=== PATIENT | female | born 1980 | race Caucasian/White ===

== ENCOUNTER 2019-12-16 18:15 | Emergency (ER) | payer BC, SELFPAY ==
[2019-12-16 18:32] VITALS: BP 150/87; PULSE 117; RESP 18; TEMP 38.6; O2SAT 100
--- NOTE | 2019-12-16 18:54 | ED.GENADULT ---
HPI - General Adult General Chief complaint: Upper Respiratory Infection Stated complaint: Cough/Fever/Body Aches Time Seen by Provider: 12/16/19 18:54 Source: patient Mode of arrival: ambulatory Limitations: no limitations History of Present Illness HPI narrative: 39-year-old female patient presents to the [facility] with complaints of cold symptoms weeks for the past 2 days. Patient states that her fever started today. Patient states she has had severe aches, chills fevers. Patient states she did get a flu shot in July 2019. Patient denies any chest pain, shortness breath, abdominal pain, nausea, vomiting or diarrhea. Patient states she has tried taking some Mucinex for her symptoms. Related Data Home Medications Medication Instructions Recorded Confirmed cetirizine [Zyrtec] 10 mg PO DAILY 11/11/19 12/16/19 escitalopram oxalate [Lexapro] 20 mg PO DAILY 11/11/19 12/16/19 omeprazole 20 mg PO DAILY 11/11/19 12/16/19 Allergies Allergy/AdvReac Type Severity Reaction Status Date / Time No Known Allergies Allergy Verified 12/16/19 18:38 Review of Systems Review of Systems: Narrative: CONSTITUTIONAL: Positive fever, body aches, chills, and sweats. EYES: Denies visual changes, redness, or discharge. ENT: Denies rhinorrhea, congestion, sore throat, or otalgia. CARDIOVASCULAR: Denies chest pain, palpitations, or edema. RESPIRATORY: Positive cough, denies dyspnea. GASTROINTESTINAL: Denies abdominal pain, nausea, vomiting, or diarrhea. GENITOURINARY: Denies dysuria or hematuria. SKIN: Denies rash or itching. MUSCULOSKELETAL: Denies back pain, joint pain, or myalgia. NEUROLOGIC: Positive headache, denies numbness, or weakness. PSYCHIATRIC: Denies anxiety or depression. [facility] Past Medical History Medical History Anxiety and depression Benign breast lumps GERD (gastroesophageal reflux disease) Seasonal allergies Tubal infertility in female Surgical History Surgical History H/O sinus surgery History of cholecystectomy History of elbow surgery History of endometrial ablation History of lumpectomy of right breast Social History Social History (Reviewed 12/16/19 @ 18:55 by STEVEN Valle Smoking status: Former smoker Tobacco type: cigarettes Gender identity (if verbalized by the patient): Female Comments At the time of my signature I agree with nursing past medical history, surgical, social, and family history. There is no relevant family history pertinent to the presenting complaint. Exam Narrative: Exam Narrative: GENERAL: ill-appearing, well-nourished, and in no acute distress. Patient is curled up with heavy coat on complaining of being cold HEAD: Normocephalic, atraumatic. EYES: PERRLA and EOMI. ENT: Nares with erythema and edema noted bilaterally, patent, no rhinorrhea or epistaxis. Mucous membranes moist. Posterior pharynx with no erythema, tonsillar margin, exudates or lesions present. Bilateral TMs are clear with no erythema or foreign bodies in the canal. NECK: Supple. No lymphadenopathy CHEST: Clear to auscultation. No respiratory distress. HEART: Regular rate and rhythm. No murmur heard. Normal peripheral pulses. ABDOMEN: Soft, nontender, nondistended, normal active bowel sounds. EXTREMITIES: Normal range of motion. No edema. SKIN: Warm, dry, no rash. NEURO: No focal deficits. Alert and oriented x3. Course Vital Signs Vital signs: Vital Signs Temperature 38.6 C H 12/16/19 18:32 Pulse Rate 117 H 12/16/19 18:32 Respiratory Rate 18 12/16/19 18:32 Blood Pressure 150/87 H 12/16/19 18:32 Pulse Oximetry 100 12/16/19 18:32 Temperature 38.6 C H 12/16/19 18:32 Pulse Rate 117 H 12/16/19 18:32 Respiratory Rate 18 12/16/19 18:32 Blood Pressure 150/87 H 12/16/19 18:32 Pulse Oximetry 100 12/16/19 18:32 Vital signs reviewed. The patient has been infor
== END 2019-12-16 19:09 | disposition home or self-care (01) ==
PROVIDERS: Emergency Provider Nurse Practitioner Family; PCP Internal Medicine
DX: J06.9 Acute upper respiratory infection, unspecified (principal); R50.9 Fever, unspecified; Z87.891 Personal history of nicotine dependence; K21.9 Gastro-esophageal reflux disease without esophagitis; F41.9 Anxiety disorder, unspecified; F32.9 Major depressive disorder, single episode, unspecified
CPT/HCPCS: 87804; 99213; G0463

== ENCOUNTER 2021-08-05 12:15 | Emergency (ER) | payer BC, SELFPAY ==
[2021-08-05 12:22] VITALS: BP 140/87; PULSE 72; RESP 16; TEMP 37.2; O2SAT 100
--- NOTE | 2021-08-05 13:15 | ED.URI ---
HPI - URI/Sore Throat General Chief Complaint: Upper Respiratory Infection Stated Complaint: Sinus Pain/Ear Pain Time Seen by Provider: 08/05/21 12:44 Source: patient and RN notes reviewed Mode of arrival: ambulatory Limitations: no limitations History of Present Illness HPI Narrative: Patient presents today complaining of 4-day history of nasal congestion, rhinorrhea, right ear pain, sore throat, cough. Currently rates her sore throat 8/10 and has been taking Mucinex and [place] plus with mild relief. She has not been vaccinated against COVID-19. MD elicited complaint: cough, sore throat and nasal congestion Related Data Home Medications Medication Instructions Recorded Confirmed cetirizine [Zyrtec] 10 mg PO DAILY 11/11/19 08/05/21 escitalopram oxalate [Lexapro] 20 mg PO DAILY 11/11/19 08/05/21 omeprazole 20 mg PO DAILY 11/11/19 08/05/21 bupropion HCl 150 mg PO QAM 08/05/21 08/05/21 ergocalciferol (vitamin D2) 1,250 mcg PO WEEKLY 08/05/21 08/05/21 [Vitamin D2] vitamin B complex [B 1 tablet PO DAILY 08/05/21 08/05/21 Complex-Vitamin B12] Allergies Allergy/AdvReac Type Severity Reaction Status Date / Time No Known Allergies Allergy Verified 08/05/21 12:41 Review of Systems Review of Systems: CONSTITUTIONAL: Denies body aches, fever, chills, or sweats. EYES: Denies visual changes, redness, or discharge. ENT:+ Congestion, rhinorrhea, right ear pain, sore throat CARDIOVASCULAR: Denies chest pain, palpitations, or edema. RESPIRATORY: Denies dyspnea.+ Cough GASTROINTESTINAL: Denies abdominal pain, nausea, vomiting, or diarrhea. GENITOURINARY: Denies dysuria or hematuria. SKIN: Denies rash, itching, or wounds. MUSCULOSKELETAL: Denies back pain, joint pain, or myalgia. NEUROLOGIC: Denies headache, numbness, tingling, or weakness. PSYCH: Denies depression or anxiety. [facility] Past Medical History Medical History Anxiety and depression Benign breast lumps GERD (gastroesophageal reflux disease) Seasonal allergies Tubal infertility in female Surgical History Surgical History H/O sinus surgery History of cholecystectomy History of elbow surgery History of endometrial ablation History of lumpectomy of right breast Social History Social History Smoking status: Former smoker Tobacco type: cigarettes Gender identity (if verbalized by the patient): Female Comments At time of signature, I have reviewed and agree with nursing past medical, surgical, social and family history unless otherwise noted. Please see nursing chart for further information. There is no relevant family history pertinent to the presenting complaint Exam Narrative: GENERAL: Well-appearing, well-nourished, and in no acute distress. HEAD: Normocephalic, atraumatic. EYES: EOMI. No redness or drainage. Conjunctivae normal. ENT: Mucous membranes pink and moist. Nares clear. No rhinorrhea. Bilateral erythematous and bulging TMs, left greater than right. Throat erythematous with mild edema. No exudate.. Uvula midline. NECK: Normal AROM. Supple. No lymphadenopathy. CHEST: No respiratory distress. Clear to auscultation. HEART: Regular rate and rhythm. No murmur appreciated. Normal peripheral pulses. EXTREMITIES: Normal range of motion. No edema. SKIN: Warm, dry, no rash. Capillary refill normal. Normal skin turgor. NEURO: No focal deficits. Alert and oriented x3. Gait steady. PSYCH: Normal affect. No signs of depression or anxiety. Course Vital Signs Vital signs: Vital Signs Temperature 98.9 F 08/05/21 12:22 Pulse Rate 72 08/05/21 12:22 Respiratory Rate 16 08/05/21 12:22 Blood Pressure 140/87 08/05/21 12:22 Pulse Oximetry 100 08/05/21 12:22 Temperature 98.9 F 08/05/21 12:22 Pulse Rate 72 08/05/21 12:22 Respiratory Ra
== END 2021-08-05 13:26 | disposition home or self-care (01) ==
PROVIDERS: Emergency Provider Nurse Practitioner; PCP Internal Medicine
DX: H66.93 Otitis media, unspecified, bilateral (principal); J06.9 Acute upper respiratory infection, unspecified; Z20.822 Contact with and (suspected) exposure to COVID-19; Z87.891 Personal history of nicotine dependence; K21.9 Gastro-esophageal reflux disease without esophagitis; F41.9 Anxiety disorder, unspecified; F32.A Depression, unspecified
CPT/HCPCS: 87081; 87426; 87880; 99213; C9803; G0463

== ENCOUNTER 2022-04-14 09:05 | Emergency (ER) | payer BC, SELFPAY ==
[2022-04-14 09:09] VITALS: BP 128/81; PULSE 82; RESP 20; TEMP 37.1; O2SAT 98
--- NOTE | 2022-04-14 09:09 | ED.URI ---
HPI - URI/Sore Throat General Chief Complaint: Upper Respiratory Infection Stated Complaint: fever sore throat ear pain Time Seen by Provider: 04/14/22 09:10 Source: patient Mode of arrival: ambulatory Limitations: no limitations History of Present Illness HPI Narrative: Ms. Zarco is a 41-year-old female patient presenting to the clinic today with complaints of fever, sore throat, and ear pain x3 days. She reports that her highest temp was 101.2 degrees Fahrenheit. Denies any known exposure to anybody with COVID, strep, or influenza. 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 Has some nasal congestion and cough. Does feel like some of the nasal drainage is going in the back of her throat. MD elicited complaint: fever, cough, sore throat, rhinorrhea and nasal congestion Related Data Home Medications Medication Instructions Recorded Confirmed escitalopram oxalate 20 mg tablet 20 mg PO DAILY 11/11/19 04/14/22 (Lexapro) omeprazole 20 mg tablet,delayed 20 mg PO DAILY 11/11/19 04/14/22 release bupropion HCl 150 mg 24 hr tablet, 150 mg PO QAM 08/05/21 04/14/22 extended release ergocalciferol (vitamin D2) 1,250 1,250 mcg PO WEEKLY 08/05/21 04/14/22 mcg (50,000 unit) capsule (Vitamin D2) vitamin B complex (B 1 tablet PO DAILY 08/05/21 04/14/22 Complex-Vitamin B12 tablet) cetirizine 5 mg-pseudoephedrine ER tablet PO 04/14/22 120 mg tablet,extended release,12hr (Zyrtec-D) Allergies Allergy/AdvReac Type Severity Reaction Status Date / Time No Known Allergies Allergy Verified 08/05/21 12:41 Review of Systems Review of Systems: Pertinent positives per HPI. Patient denies any rash, headache, visual changes, dizziness, cough, shortness of breath, chest pain, palpitations, nausea, vomiting, diarrhea, constipation, abdominal pain, or any urinary issues. [facility] Past Medical History Medical History (Updated 04/14/22 @ 09:29 by Blair Graves, [employer]) Anxiety and depression Benign breast lumps GERD (gastroesophageal reflux disease) Seasonal allergies Tubal infertility in female Surgical History Surgical History H/O sinus surgery History of cholecystectomy History of elbow surgery History of endometrial ablation History of lumpectomy of right breast Social History Social History Smoking status: Former smoker Tobacco type: cigarettes Gender identity (if verbalized by the patient): Female Comments At the time of my signature, I reviewed and agree with the nursing past medical, surgical, social, and family history. There is no relevant family history pertinent to the patient complaint. Exam Narrative: General: Well-developed, well nourished, in no apparent distress Head: Normocephalic, atraumatic Eyes: Pupils equally round and reactive to light bilaterally, EOM intact, sclera and conjunctive clear, no discharge, lids normal Ears: TMs intact and dull with mild bulging, ear canals clear, no drainage, grossly hearing normal. Nose: Nares patent, clear nasal discharge, moderate inflammation to anterior and posterior turbinates, no sinus tenderness. Mouth: Oral pharynx without lesions or masses, good dentition, MMM. Oropharynx mildly red, postnasal drip Neck: Supple, trachea midline, no enlargement of anterior or posterior cervical nodes, no thyroid masses or goiter palpable. Cardio: Regular rate and rhythm, s1 and s2 normal, no murmur appreciated. Resp: Clear to auscultation bilaterally, no rhonchi, rales, wheezing or rubs Course Course Emergency Course: Portions of this record may have been created with voice recognition software. Level of Care: Express Care Visit Vital Signs Vital signs: Vital signs reviewed MDM - URI/Sore Throat MDM Narrative Medical decision making narrative: At the time of visit patient is resting comfortably on the e
== END 2022-04-14 09:40 | disposition home or self-care (01) ==
PROVIDERS: Emergency Provider Nurse Practitioner Family; PCP Internal Medicine
DX: R09.82 Postnasal drip (principal); J06.9 Acute upper respiratory infection, unspecified; J02.9 Acute pharyngitis, unspecified; H69.93 Unspecified Eustachian tube disorder, bilateral; Z20.822 Contact with and (suspected) exposure to COVID-19; K21.9 Gastro-esophageal reflux disease without esophagitis; F41.9 Anxiety disorder, unspecified; F32.A Depression, unspecified
CPT/HCPCS: 87081; 87426; 87880; 99213; C9803; G0463

== ENCOUNTER 2022-09-02 08:42 | Emergency (ER) | payer BC, SELFPAY ==
--- NOTE | 2022-09-02 08:48 | ED.URI ---
HPI - URI/Sore Throat General Chief Complaint: Upper Respiratory Infection Stated Complaint: sore throat,ears hurts,stuffy Time Seen by Provider: 09/02/22 09:02 Source: patient, RN notes reviewed and old records reviewed Mode of arrival: ambulatory Limitations: no limitations History of Present Illness HPI Narrative: 42-year-old female presents to the [facility] with complaints of bilateral ear pain, nasal congestion, sore throat for 3 days. Denies fevers. Has taken Tylenol cold and flu. Reports having a negative COVID test Able to tolerate fluids by mouth: Yes Treatments prior to arrival: ibuprofen Related Data Home Medications Medication Instructions Recorded Confirmed escitalopram oxalate 20 mg tablet 20 mg PO DAILY 11/11/19 09/02/22 (Lexapro) omeprazole 20 mg tablet,delayed 20 mg PO DAILY 11/11/19 09/02/22 release bupropion HCl 150 mg 24 hr tablet, 150 mg PO QAM 08/05/21 09/02/22 extended release ergocalciferol (vitamin D2) 1,250 1,250 mcg PO WEEKLY 08/05/21 09/02/22 mcg (50,000 unit) capsule (Vitamin D2) vitamin B complex (B 1 tablet PO DAILY 08/05/21 09/02/22 Complex-Vitamin B12 tablet) modafinil 100 mg tablet 100 mg PO DAILY 09/02/22 09/02/22 Allergies Allergy/AdvReac Type Severity Reaction Status Date / Time No Known Allergies Allergy Verified 09/02/22 09:03 Review of Systems Review of Systems: All systems reviewed & are unremarkable except as noted in HPI and below Constitutional: Constitutional: Reports as per HPI, Denies chills and Reports fever(s) Eyes: Eyes: Reports no additional eye complaints ENT: Reports as per HPI, Reports nasal congestion and Reports sore throat Cardiovascular: Cardiovascular: Reports no additional cardiovascular complaints Respiratory: Respiratory: Reports no additional respiratory complaints Gastrointestinal: Gastrointestinal: Reports no additional gastrointestinal complaints Musculoskeletal: Musculoskeletal: Reports no additional musculoskeletal complaints Integumentary/Breasts: Skin/Breast: Reports system reviewed and no additional complaints, except as docu Neurologic: Reports system reviewed and no additional complaints, except as documented Psychiatric: Psychiatric: Reports no additional psychiatric complaints Allergic/Immunologic: Allergic/Immunologic: Reports no additional allergic/immunologic complaints PMFSH Past Medical History Medical History (Updated 09/02/22 @ 09:10 by Yuli Emerson APRN) Anxiety and depression Benign breast lumps GERD (gastroesophageal reflux disease) Seasonal allergies Tubal infertility in female Surgical History Surgical History H/O sinus surgery History of cholecystectomy History of elbow surgery History of endometrial ablation History of lumpectomy of right breast Social History Social History Smoking status: Former smoker Tobacco type: cigarettes Gender identity (if verbalized by the patient): Female Comments At the time of my signature, I reviewed and agree with the nursing past medical, surgical, social, and family history. There is no relevant family history pertinent to the patient complaint. Exam Const: General: comfortable, no acute distress, well developed, alert, ill appearing acutely and well nourished Nutritional Appearance: well nourished Orientation/consciousness: patient oriented x3 Limitations: no limitations HENMT: Head: normal to inspection Ears: external ears normal, TM's normal bilaterally and EAC's normal Face/Nose/Sinus: Normal external nose present and Normal nares present Face and sinus: normal facial exam Mouth: Yes Normal oral and palatal mucosa present, Yes lip normal and Yes moist mucous membranes Throat: uvula midline, abnormal tonsil bilateral erythema, posterior oropharynx abnormal erythema and uvular edema Eyes: General: appearance normal,
[2022-09-02 08:49] VITALS: BP 130/82; PULSE 97; RESP 14; TEMP 36.6; O2SAT 100
== END 2022-09-02 09:39 | disposition home or self-care (01) ==
PROVIDERS: Emergency Provider Nurse Practitioner; PCP Internal Medicine
DX: K12.2 Cellulitis and abscess of mouth (principal); K21.9 Gastro-esophageal reflux disease without esophagitis; Z87.891 Personal history of nicotine dependence; F41.9 Anxiety disorder, unspecified; F32.A Depression, unspecified
CPT/HCPCS: 87081; 87804; 87880; 99213; G0463

== ENCOUNTER 2022-12-01 08:07 | Emergency (ER) | payer BC, SELFPAY ==
--- NOTE | 2022-12-01 08:08 | ED.URI ---
HPI - URI/Sore Throat General Chief Complaint: Upper Respiratory Infection Stated Complaint: cold flu Time Seen by Provider: 12/01/22 08:08 Source: patient Mode of arrival: ambulatory Limitations: no limitations History of Present Illness HPI Narrative: Mona is a 42-year-old female patient presenting to the clinic today with complaints of cold/flu symptoms times. She reports her symptoms began 2-3 days ago. States that she is having a productive cough with yellowish brown phlegm, fevers, chills, body aches, ear pain, and sore throat. She reports that she initially left work few days ago due to some stomach discomfort. MD elicited complaint: sore throat and nasal congestion Related Data Home Medications Medication Instructions Recorded Confirmed escitalopram oxalate 20 mg tablet 20 mg PO DAILY 11/11/19 12/01/22 (Lexapro) omeprazole 20 mg tablet,delayed 20 mg PO DAILY 11/11/19 12/01/22 release bupropion HCl 150 mg 24 hr tablet, 150 mg PO QAM 08/05/21 12/01/22 extended release ergocalciferol (vitamin D2) 1,250 1,250 mcg PO WEEKLY 08/05/21 12/01/22 mcg (50,000 unit) capsule (Vitamin D2) vitamin B complex (B 1 tablet PO DAILY 08/05/21 12/01/22 Complex-Vitamin B12 tablet) modafinil 100 mg tablet 100 mg PO DAILY 09/02/22 12/01/22 Allergies Allergy/AdvReac Type Severity Reaction Status Date / Time No Known Allergies Allergy Verified 12/01/22 08:24 Review of Systems Review of Systems: Pertinent positives per HPI. Patient denies any rash, headache, visual changes, dizziness, shortness of breath, chest pain, palpitations, vomiting, diarrhea, constipation, abdominal pain, or any urinary issues. [facility] Past Medical History Medical History (Updated 12/01/22 @ 08:35 by Blair Graves APRN) Anxiety and depression Benign breast lumps GERD (gastroesophageal reflux disease) Seasonal allergies Tubal infertility in female Surgical History Surgical History H/O sinus surgery History of cholecystectomy History of elbow surgery History of endometrial ablation History of lumpectomy of right breast Social History Social History Smoking status: Former smoker Tobacco type: cigarettes Living arrangements: with family Gender identity (if verbalized by the patient): Female Comments At the time of my signature, I reviewed and agree with the nursing past medical, surgical, social, and family history. There is no relevant family history pertinent to the patient complaint. Exam Narrative: General: Well-developed, well nourished, in no apparent distress Head: Normocephalic, atraumatic Eyes: Pupils equally round and reactive to light bilaterally, EOM intact, sclera and conjunctive clear, no discharge, lids normal Ears: TMs intact, congestion, dull, ear canals clear, no drainage, grossly hearing normal. Nose: Nares patent, clear nasal discharge, no inflammation, no sinus tenderness. Mouth: Oral pharynx without lesions or masses, good dentition, MMM. Oropharynx red with uvula swelling Neck: Supple, trachea midline, no enlargement of anterior or posterior cervical nodes, no thyroid masses or goiter palpable. Cardio: Regular rate and rhythm, s1 and s2 normal, no murmur appreciated. Resp: Clear to auscultation bilaterally, no rhonchi, rales, wheezing or rubs Course Course Emergency Course: Portions of this record may have been created with voice recognition software. Level of Care: Express Care Visit Vital Signs Vital signs: Vital Signs Temperature 36.7 C 12/01/22 08:12 Pulse Rate 79 12/01/22 08:12 Respiratory Rate 20 12/01/22 08:12 Blood Pressure 136/86 12/01/22 08:12 Pulse Oximetry 100 12/01/22 08:12 Oxygen Delivery Room Air 12/01/22 08:12 Temperature 36.7 C 12/01/22 08:12 Pulse Rate 79 12/01/22 08:12 Respiratory Rate 20 12/01
[2022-12-01 08:12] VITALS: BP 136/86; PULSE 79; RESP 20; TEMP 36.7; O2SAT 100
== END 2022-12-01 08:40 | disposition home or self-care (01) ==
PROVIDERS: Emergency Provider Nurse Practitioner Family; PCP Internal Medicine
DX: J06.9 Acute upper respiratory infection, unspecified (principal); B34.9 Viral infection, unspecified; J02.9 Acute pharyngitis, unspecified; H69.93 Unspecified Eustachian tube disorder, bilateral; Z20.822 Contact with and (suspected) exposure to COVID-19; Z87.891 Personal history of nicotine dependence; K21.9 Gastro-esophageal reflux disease without esophagitis; F41.9 Anxiety disorder, unspecified; F32.A Depression, unspecified
CPT/HCPCS: 87081; 87426; 87804; 87880; 99213; C9803; G0463

== ENCOUNTER 2023-06-22 19:26 | Emergency (ER) | payer BC, SELFPAY ==
--- NOTE | 2023-06-22 19:33 | ED.URI ---
HPI - URI/Sore Throat General Chief Complaint: Upper Respiratory Infection Stated Complaint: Congestion and Ear Pain Time Seen by Provider: 06/22/23 19:43 Source: patient and RN notes reviewed Mode of arrival: ambulatory Limitations: no limitations History of Present Illness HPI Narrative: 42 year old female presents with concern for sinus pain, sinus pressure, ear pain, ear pressure. Reports symptoms started yesterday. She reports she has been taking ibuprofen. She denies fever. She denies known sick contacts. MD elicited complaint: nasal congestion, sinus pain and other (Ear pain) Related Data Home Medications Medication Instructions Recorded Confirmed bupropion HCl 150 mg 24 hr tablet, 150 mg PO DAILY 06/22/23 06/22/23 extended release cetirizine 10 mg capsule (Zyrtec) 10 mg PO DAILY 06/22/23 06/22/23 cholecalciferol (vitamin D3) 1,250 50,000 unit PO WEEKLY 06/22/23 06/22/23 mcg (50,000 unit) capsule escitalopram oxalate 20 mg tablet 20 mg PO DAILY 06/22/23 06/22/23 fexofenadine 180 mg tablet 180 mg PO DAILY 06/22/23 06/22/23 (Allergy Relief (fexofenadine)) omeprazole 20 mg capsule,delayed 20 mg PO DAILY 06/22/23 06/22/23 release Allergies Allergy/AdvReac Type Severity Reaction Status Date / Time No Known Allergies Allergy Verified 06/22/23 19:40 Review of Systems Review of Systems: CONSTITUTIONAL: Denies malaise, chills, sweats, or fever. EYES: Denies visual changes, redness, or discharge. ENT: Reports rhinorrhea, congestion, sinus pain, otalgia CARDIOVASCULAR: Denies chest pain, palpitations, or edema. RESPIRATORY: Denies cough. Denies dyspnea. GASTROINTESTINAL: Denies abdominal pain, nausea, vomiting, diarrhea SKIN: Denies rash or itching. MUSCULOSKELETAL: Denies myalgia. NEUROLOGIC: Denies headache. All systems reviewed & are unremarkable except as noted in HPI and below PMFSH Past Medical History Medical History (Updated 06/22/23 @ 19:50 by Yuli Botello NP) Anxiety and depression Benign breast lumps GERD (gastroesophageal reflux disease) Seasonal allergies Tubal infertility in female Surgical History Surgical History H/O sinus surgery History of cholecystectomy History of elbow surgery History of endometrial ablation History of lumpectomy of right breast Social History Social History Smoking status: Former smoker Tobacco type: cigarettes Living arrangements: with family Gender identity (if verbalized by the patient): Female Comments At time of signature, agree with nursing past medical, surgical, social and family history. There is no relevant family history pertinent to the presenting complaint Exam Narrative: GENERAL: Well-appearing, well-nourished, and in no acute distress. HEAD: Normocephalic EYES: PERRLA, conjunctivae clear ENT: Nares clear, turbinates edematous and erythematous, clear discharge. Mucous membranes moist. TM pearly erythematous bilaterally, slightly bulging on the left; no tragal tenderness. Oropharynx not erythematous without lesions. Tonsils not enlarged and without exudate, no drooling, no hoarseness, no trismus, uvula midline. NECK: Supple. No lymphadenopathy CHEST: Clear to auscultation, breath sounds equal. No wheezing, rhonchi, rales, or stridor. No respiratory distress, speaks in full sentences. HEART: Regular rate and rhythm. No murmur heard. SKIN: Warm, dry, no rash. NEURO: Alert and oriented x3. PSYCH: Normal mood and affect Course Course Emergency Course: Patient is aware of diagnosis, understands and agrees to treatment plan. Anticipatory guidance given. Patient agrees to follow-up as directed and is aware of reasons to seek care at the emergency department. Portions of this record may have been created with voice recognition software Level of Care: Express Care Visit Vital Signs Vital signs: Reviewe
[2023-06-22 19:36] VITALS: BP 129/75; PULSE 100; RESP 20; TEMP 36.7; O2SAT 99
== END 2023-06-22 20:21 | disposition home or self-care (01) ==
PROVIDERS: Emergency Provider Nurse Practitioner; PCP Internal Medicine
DX: H66.92 Otitis media, unspecified, left ear (principal); F41.9 Anxiety disorder, unspecified; F32.A Depression, unspecified; K21.9 Gastro-esophageal reflux disease without esophagitis
CPT/HCPCS: 99213; G0463

== ENCOUNTER 2023-09-14 09:10 | Emergency (ER) | payer BC, SELFPAY ==
[2023-09-14 09:15] VITALS: BP 133/90; PULSE 93; RESP 14; TEMP 36.4; O2SAT 98
--- NOTE | 2023-09-14 09:52 | ED.URI ---
HPI - URI/Sore Throat General Chief Complaint: Upper Respiratory Infection Stated Complaint: throat/right ear Time Seen by Provider: 09/14/23 09:52 Source: patient Mode of arrival: ambulatory Limitations: no limitations History of Present Illness HPI Narrative: 43 year old female who presents to [facility] care with complaints of sore throat and right ear pain since Sunday 2 days ago. Patient reports that she had sinus surgery on August 13 and had Adenoidectomy on the . Patient reports that her right ear feels clogged and throat is very sore especially with swallowing. Patient has been taking Ibuprofen, Zyrtec D, and also using Chloraseptic throat spray for her symptoms. MD elicited complaint: sore throat and other (right ear pain) Pertinent past history: sinusitis and other (recent sinus surgery and adenoidectomy) Onset (ago): day(s) (2) Pain scale (0-10): 7 Able to tolerate fluids by mouth: Yes Exacerbating factors: swallowing Treatments prior to arrival: ibuprofen and other (Zyrtec D, And Chloraseptic spray to throat) Related Data Home Medications Medication Instructions Recorded Confirmed bupropion HCl 150 mg 24 hr tablet, 150 mg PO DAILY 06/22/23 09/14/23 extended release cholecalciferol (vitamin D3) 1,250 50,000 unit PO WEEKLY 06/22/23 09/14/23 mcg (50,000 unit) capsule escitalopram oxalate 20 mg tablet 20 mg PO DAILY 06/22/23 09/14/23 omeprazole 20 mg capsule,delayed 20 mg PO DAILY 06/22/23 09/14/23 release Allergies Allergy/AdvReac Type Severity Reaction Status Date / Time No Known Allergies Allergy Verified 06/22/23 19:40 Review of Systems Review of Systems: CONSTITUTIONAL: Denies malaise, chills, sweats, or fever. EYES: Denies visual changes, redness, or discharge. ENT: Reports rhinorrhea, congestion, sinus pain,right otalgia and sore throat. CARDIOVASCULAR: Denies chest pain, palpitations, or edema. RESPIRATORY: Reports cough.? Denies dyspnea. GASTROINTESTINAL: Denies abdominal pain, nausea, vomiting, diarrhea SKIN: Denies rash or itching. MUSCULOSKELETAL: Denies myalgia. NEUROLOGIC: Denies headache. All systems reviewed & are unremarkable except as noted in HPI and below PMFSH Past Medical History Medical History Anxiety and depression Benign breast lumps GERD (gastroesophageal reflux disease) Seasonal allergies Tubal infertility in female Surgical History Surgical History H/O adenoidectomy H/O sinus surgery History of cholecystectomy History of elbow surgery History of endometrial ablation History of lumpectomy of right breast Social History Social History (Updated 09/15/23 @ 07:45 by Dinorah Quezada NP) Smoking status: Current every day smoker Tobacco type: e-cigarettes/vaping Living arrangements: with family Gender identity (if verbalized by the patient): Female Comments At time of signature, agree with nursing past medical, surgical, social and family history. There is no relevant family history pertinent to the presenting complaint Exam Narrative: GENERAL: Well-appearing, well-nourished, and in no acute distress. HEAD: Normocephalic EYES: PERRLA, conjunctivae clear ENT: Nares clear, turbinates edematous and erythematous, clear discharge. Mucous membranes moist. TM pearly calderon with dull light reflex bilaterally; right tragal tenderness with excoriation of ear canal. Oropharynx erythematous without lesions. Tonsils red enlarged and without exudate, no drooling, no hoarseness, no trismus, uvula midline. NECK: Supple. lymphadenopathy CHEST: Clear to auscultation, breath sounds equal. No wheezing, rhonchi, rales, or stridor. No respiratory distress, speaks in full sentences.no cough noted, SAO2 98% on room air HEART: Regular rate and rhythm. No murmur heard. SKIN: Warm, dry, no rash. NEURO: Alert and oriented x3. PSY
== END 2023-09-14 10:05 | disposition home or self-care (01) ==
PROVIDERS: Emergency Provider Registered Nurse; PCP Internal Medicine
DX: J02.0 Streptococcal pharyngitis (principal); H60.311 Diffuse otitis externa, right ear; K21.9 Gastro-esophageal reflux disease without esophagitis; F41.9 Anxiety disorder, unspecified; F32.A Depression, unspecified
CPT/HCPCS: 87880; 99213; G0463

== ENCOUNTER 2023-12-09 08:40 | Emergency (ER) | payer BC, SELFPAY ==
[2023-12-09 08:49] VITALS: BP 146/87; PULSE 98; RESP 18; TEMP 36.2; O2SAT 99
--- NOTE | 2023-12-09 09:05 | ED.URI ---
HPI - URI/Sore Throat General Chief Complaint: Upper Respiratory Infection Stated Complaint: Body Ache/Headache/Congestion/Fever History of Present Illness HPI Narrative: Patient presents with fatigue body aches facial congestion and headache. No shortness of breath no chest pain. Patient took 1 Zyrtec D for her symptoms with minimal relief otherwise she is not taking anything [id number] for symptoms. Related Data Home Medications Medication Instructions Recorded Confirmed bupropion HCl 150 mg 24 hr tablet, 150 mg PO DAILY 06/22/23 12/09/23 extended release cholecalciferol (vitamin D3) 1,250 50,000 unit PO WEEKLY 06/22/23 12/09/23 mcg (50,000 unit) capsule escitalopram oxalate 20 mg tablet 20 mg PO DAILY 06/22/23 12/09/23 omeprazole 20 mg capsule,delayed 20 mg PO DAILY 06/22/23 12/09/23 release Allergies Allergy/AdvReac Type Severity Reaction Status Date / Time No Known Allergies Allergy Verified 12/09/23 09:06 Review of Systems Review of Systems: CONSTITUTIONAL: Denies chills, or sweats. Reports fever and generalized body aches EYES: Denies visual changes, redness, or discharge. ENT: Denies otalgia. Reports nasal congestion runny nose and sore throat CARDIOVASCULAR: Denies chest pain, palpitations, or edema. RESPIRATORY: Denies dyspnea. Reports occasional cough GASTROINTESTINAL: Denies abdominal pain, nausea, vomiting, or diarrhea. GENITOURINARY: Denies dysuria or hematuria. SKIN: Denies rash or itching. MUSCULOSKELETAL: Denies back pain, joint pain, or myalgia. Reports generalized body aches NEUROLOGIC: Denies headache, numbness, or weakness. PSYCHIATRIC: Denies anxiety or depression. [facility] Past Medical History Medical History Anxiety and depression Benign breast lumps GERD (gastroesophageal reflux disease) Seasonal allergies Tubal infertility in female Surgical History Surgical History H/O adenoidectomy H/O sinus surgery History of cholecystectomy History of elbow surgery History of endometrial ablation History of lumpectomy of right breast Social History Social History (Updated 09/15/23 @ 07:45 by Dinorah Quezada NP) Smoking status: Current every day smoker Tobacco type: e-cigarettes/vaping Living arrangements: with family Gender identity (if verbalized by the patient): Female Comments At time of signature, agree with nursing past medical, surgical, social and family history. There is no relevant family history pertinent to the presenting complaint Exam Narrative: The patient is a well-developed, well-nourished in no acute distress. SKIN: Skin is warm and dry without erythema, swelling or exudate. There is good turgor. No tenting. HEAD: Atraumatic. Normocephalic. No temporal or scalp tenderness. EYES: Moist and bright. Sclera and conjunctivae normal. No discharge. PERRLA. Extraocular motions intact. Gross visual acuity intact. EARS: Pinna is normal shape and contour. Clear external auditory canals. TM pearly lozano with good cone of light, no erythema or suppuration. Bilateral cerumen noted no gross hearing deficit. NOSE: pink, moist mucosa with good air movement. Clear rhinorrhea without nasal flaring. Septum midline. Mouth: moist mucous membranes. THROAT; mild erythema noted to posterior oropharynx with moderate postnasal drainage. Without exudate or ulceration.. Uvula midline. Normal movement of soft palate. NECK: Supple and nontender with full range of motion without discomfort. No meningeal signs. LUNGS: Equal and bilateral breath sounds without wheezes, rales or rhonchi. CHEST: The chest wall is without retractions or use of accessory muscles. HEART: Has a regular rate and rhythm without murmur, gallops, click or rub. ABDOMEN: Soft, nontender with positive active bowel sounds. No rebound tenderness. EXTREMITIES: Without cyanosis, clubbing or edema.
== END 2023-12-09 09:15 | disposition home or self-care (01) ==
PROVIDERS: Emergency Provider Nurse Practitioner Family; PCP Internal Medicine
DX: J06.9 Acute upper respiratory infection, unspecified (principal); Z20.822 Contact with and (suspected) exposure to COVID-19; K21.9 Gastro-esophageal reflux disease without esophagitis; F41.9 Anxiety disorder, unspecified; F32.A Depression, unspecified
CPT/HCPCS: 87426; 87804; 99213; G0463

== ENCOUNTER 2023-12-17 10:43 | Emergency (ER) | payer BC, SELFPAY ==
--- NOTE | ~2023-12-17 | XR_ITS ---
EXAMINATION: XR chest 2V DATE: 12/17/2023 11:29 INDICATION: Cough TECHNIQUE: PA and lateral views of the chest are obtained. COMPARISON: 01/13/2018 FINDINGS: The lungs are free of acute opacities. No pleural effusion or pneumothorax. The cardiomedia stinal silhouette is normal. There is mild thoracic spondylosis. Calcified pulmonary nodules are cons istent with old granulomatous disease. IMPRESSION: 1. No acute cardiopulmonary abnormality. Reviewed, dictated and finalized at location [facility]
[2023-12-17 10:58] VITALS: BP 147/80; PULSE 87; RESP 16; TEMP 37.1; O2SAT 99
--- NOTE | 2023-12-17 11:09 | ED.URI ---
HPI - URI/Sore Throat General Chief Complaint: Upper Respiratory Infection Stated Complaint: Fever/Cough/Runny Nose Source: patient, RN notes reviewed and old records reviewed Mode of arrival: ambulatory Limitations: no limitations History of Present Illness HPI Narrative: 43-year-old female presents to [facility] with complaints cough, congestion, sore throat, myalgia, fever that started Sunday. Patient states was seen here last Sunday with similar symptoms that improved but then returned on Sunday. Patient taking [id number] medications with little relief. Related Data Home Medications Medication Instructions Recorded Confirmed bupropion HCl 150 mg 24 hr tablet, 150 mg PO DAILY 06/22/23 12/17/23 extended release escitalopram oxalate 20 mg tablet 20 mg PO DAILY 06/22/23 12/17/23 omeprazole 20 mg capsule,delayed 20 mg PO DAILY 06/22/23 12/17/23 release Allergies Allergy/AdvReac Type Severity Reaction Status Date / Time No Known Allergies Allergy Verified 12/17/23 11:12 Review of Systems Constitutional: Constitutional: Reports no additional constitutional complaints, Reports body ache(s), Reports chills, Reports fatigue, Reports fever(s) and Denies headache(s) Eyes: Eyes: Reports no additional eye complaints and Denies blurry vision ENT: Reports system reviewed and no additional complaints, except as documented, Denies vertigo, Denies dizziness, Denies ear discharge, Denies otalgia, Denies facial pain, Denies headache(s), Reports nasal congestion, Reports nasal discharge, Reports sinus pain, Reports sinus pressure and Reports sore throat Cardiovascular: Cardiovascular: Reports no additional cardiovascular complaints, Denies chest pain, Denies chest pain at rest, Denies rapid heart rate and Denies dyspnea Respiratory: Respiratory: Reports no additional respiratory complaints, Reports chest congestion, Reports cough, Denies pain on inspiration, Denies pain with cough and Denies dyspnea Gastrointestinal: Gastrointestinal: Denies abdominal pain, Denies diarrhea, Denies nausea and Denies vomiting Integumentary/Breasts: Skin/Breast: Denies rash Neurologic: Reports system reviewed and no additional complaints, except as documented, Denies vertigo, Denies dizziness and Denies headache(s) Endocrine: Endocrine: Denies fatigue PMFSH Past Medical History Medical History Anxiety and depression Benign breast lumps GERD (gastroesophageal reflux disease) Seasonal allergies Tubal infertility in female Surgical History Surgical History H/O adenoidectomy H/O sinus surgery History of cholecystectomy History of elbow surgery History of endometrial ablation History of lumpectomy of right breast Social History Social History Smoking status: Current every day smoker Tobacco type: e-cigarettes/vaping Living arrangements: with family Gender identity (if verbalized by the patient): Female Comments At the time of my signature, I reviewed and agree with the nursing past medical, surgical, social, and family history. There is no relevant family history pertinent to the patient complaint. Exam Const: General: cooperative, no acute distress, ill appearing acutely and well nourished Nutritional Appearance: well nourished Orientation/consciousness: patient oriented x3 Limitations: no limitations HENMT: Head: normal to inspection and normocephalic Ears: external ears normal, TM's normal bilaterally, TM normal on the left and mastoids normal Face/Nose/Sinus: normal facial exam Face and sinus: normal facial exam and sinus tenderness Mouth: Yes Normal oral and palatal mucosa present, Yes oropharynx normal and Yes moist mucous membranes Throat: posterior oropharynx normal, tonsils normal, uvula midline, no peritonsillar masses, normal posterior or
== END 2023-12-17 11:47 | disposition home or self-care (01) ==
PROVIDERS: Emergency Provider Registered Nurse; PCP Internal Medicine
DX: J10.1 Influenza due to other identified influenza virus with other respiratory manifestations (principal); Z20.822 Contact with and (suspected) exposure to COVID-19; F17.290 Nicotine dependence, other tobacco product, uncomplicated; K21.9 Gastro-esophageal reflux disease without esophagitis; F41.9 Anxiety disorder, unspecified; F32.A Depression, unspecified
CPT/HCPCS: 71046; 87426; 87804; 99213; G0463

== ENCOUNTER 2024-07-02 09:06 | Emergency (ER) | payer BC, SELFPAY ==
[2024-07-02 09:11] VITALS: BP 131/107; PULSE 107; RESP 16; TEMP 36.1; O2SAT 98
--- NOTE | 2024-07-02 09:26 | ED.URI ---
HPI - URI/Sore Throat General Chief Complaint: Upper Respiratory Infection Stated Complaint: Congestion/Ear Pain/Fever/Sore Throat Time Seen by Provider: 07/02/24 09:36 Source: patient and RN notes reviewed Mode of arrival: ambulatory Limitations: no limitations History of Present Illness HPI Narrative: 43-year-old female presents with concern for fever, cough, nasal congestion, body aches, headache for 2 days. Reports he started having diarrhea today. She reports she has been taking DayQuil and NyQuil and ibuprofen without relief. MD elicited complaint: cough, sore throat, nasal congestion and sinus pain Related Data Home Medications Medication Instructions Recorded Confirmed bupropion HCl 150 mg 24 hr tablet, 150 mg PO DAILY 06/22/23 12/17/23 extended release escitalopram oxalate 20 mg tablet 20 mg PO DAILY 06/22/23 12/17/23 omeprazole 20 mg capsule,delayed 20 mg PO DAILY 06/22/23 12/17/23 release Allergies Allergy/AdvReac Type Severity Reaction Status Date / Time No Known Allergies Allergy Verified 12/17/23 11:12 Review of Systems Review of Systems: CONSTITUTIONAL: Reports malaise, fever. EYES: Denies visual changes, redness, or discharge. ENT: Reports rhinorrhea, congestion, and sore throat. CARDIOVASCULAR: Denies chest pain, palpitations, or edema. RESPIRATORY: Reports cough. Denies dyspnea. GASTROINTESTINAL: Denies abdominal pain, nausea, vomiting. Reports diarrhea SKIN: Denies rash or itching. MUSCULOSKELETAL: Reports myalgia. NEUROLOGIC: Reports headache. All systems reviewed & are unremarkable except as noted in HPI and below PMFSH Past Medical History Medical History Anxiety and depression Benign breast lumps GERD (gastroesophageal reflux disease) Seasonal allergies Tubal infertility in female Surgical History Surgical History H/O adenoidectomy H/O sinus surgery History of cholecystectomy History of elbow surgery History of endometrial ablation History of lumpectomy of right breast Social History Social History Smoking status: Current every day smoker Tobacco type: e-cigarettes/vaping Living arrangements: with family Gender identity (if verbalized by the patient): Female Comments At time of signature, agree with nursing past medical, surgical, social and family history. There is no relevant family history pertinent to the presenting complaint Exam Narrative: GENERAL: Well-appearing, well-nourished, and in no acute distress. HEAD: Normocephalic EYES: PERRLA, conjunctivae clear ENT: Nares clear, turbinates edematous and erythematous, clear discharge. Mucous membranes moist. TM pearly calderon with sharp light reflex bilaterally; no tragal tenderness. Oropharynx not erythematous without lesions. Tonsils not enlarged and without exudate, no drooling, no hoarseness, no trismus, uvula midline. NECK: Supple. No lymphadenopathy CHEST: Clear to auscultation, breath sounds equal. No wheezing, rhonchi, rales, or stridor. No respiratory distress, speaks in full sentences. HEART: Regular rate and rhythm. No murmur heard. SKIN: Warm, dry, no rash. NEURO: Alert and oriented x3. PSYCH: Normal mood and affect Course Course Emergency Course: Patient is aware of diagnosis, understands and agrees to treatment plan. Anticipatory guidance given. Patient agrees to follow-up as directed and is aware of reasons to seek care at the emergency department. Portions of this record may have been created with voice recognition software Level of Care: Express Care Visit Vital Signs Vital signs: Vital Signs Temperature 97 F L 07/02/24 09:11 Pulse Rate 107 H 07/02/24 09:11 Respiratory Rate 16 07/02/24 09:11 Blood Pressure 131/107 H 07/02/24 09:11 Pulse Oximetry 98 07/02/24 09:11 Oxygen Delivery Room Air
== END 2024-07-02 09:49 | disposition home or self-care (01) ==
PROVIDERS: Emergency Provider Nurse Practitioner; PCP Internal Medicine
DX: J06.9 Acute upper respiratory infection, unspecified (principal); F41.8 Other specified anxiety disorders; K21.9 Gastro-esophageal reflux disease without esophagitis; F17.290 Nicotine dependence, other tobacco product, uncomplicated
CPT/HCPCS: 99213; G0463

== ENCOUNTER 2024-07-24 12:55 | Emergency (ER) | payer BC, SELFPAY ==
[2024-07-24 13:06] VITALS: BP 146/87; PULSE 83; RESP 16; TEMP 36.4; O2SAT 100
--- NOTE | 2024-07-24 13:43 | ED.URI ---
HPI - URI/Sore Throat General Chief Complaint: Upper Respiratory Infection Stated Complaint: Congestion/cough/loss of taste Time Seen by Provider: 07/24/24 13:20 Source: patient, RN notes reviewed and old records reviewed Mode of arrival: ambulatory Limitations: no limitations History of Present Illness HPI Narrative: 43 year old female who presents to [facility] care with complaints of illness for the past 2 weeks and was seen in clinic previously for symptoms which did get better with Medrol dose pack and cough medication. Patient reports increase cough and sinus congestion and drainage since Sunday and this afternoon has loss of taste. Patient reports that she has been taking Yana Hineston cold and Flu day time and Night time formula. Patient reports history of previous sinus surgery and sinus problems MD elicited complaint: cough, rhinorrhea, nasal congestion and other (loss of taste) Pertinent past history: sinusitis and other (sinus surgery) Onset (ago): week(s) (2) Severity: moderate Able to tolerate fluids by mouth: Yes Treatments prior to arrival: other (Yana seltzer cold and flu Day/Night) Related Data Home Medications Medication Instructions Recorded Confirmed bupropion HCl 150 mg 24 hr tablet, 150 mg PO DAILY 06/22/23 12/17/23 extended release escitalopram oxalate 20 mg tablet 20 mg PO DAILY 06/22/23 12/17/23 omeprazole 20 mg capsule,delayed 20 mg PO DAILY 06/22/23 12/17/23 release cholecalciferol (vitamin D3) 1,250 07/24/24 07/24/24 mcg (50,000 unit) capsule Allergies Allergy/AdvReac Type Severity Reaction Status Date / Time No Known Allergies Allergy Verified 07/24/24 13:03 Review of Systems Review of Systems: CONSTITUTIONAL: Reports malaise,no chills, sweats, or fever. EYES: Denies visual changes, redness, or discharge. ENT: Reports rhinorrhea, congestion, sinus pain, no otalgia and no sore throat, states loss of taste CARDIOVASCULAR: Denies chest pain, palpitations, or edema. RESPIRATORY: Reports acute frequent cough.? Denies dyspnea. GASTROINTESTINAL: Denies abdominal pain, nausea, vomiting, diarrhea SKIN: Denies rash or itching. MUSCULOSKELETAL: no myalgia. NEUROLOGIC: Denies headache. All systems reviewed & are unremarkable except as noted in HPI and below PMFSH Past Medical History Medical History Anxiety and depression Benign breast lumps GERD (gastroesophageal reflux disease) Seasonal allergies Tubal infertility in female Surgical History Surgical History H/O sinus surgery History of cholecystectomy History of elbow surgery History of endometrial ablation History of lumpectomy of right breast S/P tonsillectomy and adenoidectomy Social History Social History Smoking status: Current every day smoker Tobacco type: e-cigarettes/vaping Living arrangements: with family Gender identity (if verbalized by the patient): Female Comments At time of signature, agree with nursing past medical, surgical, social and family history. There is no relevant family history pertinent to the presenting complaint Exam Narrative: GENERAL: Well-appearing, well-nourished, and in no acute distress. HEAD: Normocephalic EYES: PERRLA, conjunctivae clear ENT: Nares clear, turbinates edematous and erythematous, clear discharge, sinus pressure. Mucous membranes moist. TM pearly calderon with dull light reflex bilaterally; no tragal tenderness. Oropharynx erythematous without lesions. Tonsils not present and throat without exudate, no drooling, no hoarseness, no trismus, uvula midline.post nasal drainage NECK: Supple. No lymphadenopathy CHEST: Clear to auscultation, breath sounds equal. No wheezing, rhonchi, rales, or stridor. No respiratory distress, speaks in full sentences.frequent cough, SAO2 100% on room air H
== END 2024-07-24 14:00 | disposition home or self-care (01) ==
PROVIDERS: Emergency Provider Registered Nurse; PCP Internal Medicine
DX: J32.9 Chronic sinusitis, unspecified (principal); R05.1 Acute cough; K21.9 Gastro-esophageal reflux disease without esophagitis; F41.8 Other specified anxiety disorders
CPT/HCPCS: 99213; G0463